=== PATIENT | female | born 1960 | race African-American/Black ===

== ENCOUNTER 2024-07-15 15:22 | Outpatient (CLI) | payer MEDICARE, MEDICAID, SELFPAY ==
--- NOTE | ~2024-07-15 | XR_ITS ---
[id number] Ordering provider: Karen Arana, WATER TREATMENT OPERATOR-C History: . CERVICAL RADICULOPATHY . Comparison: None. FINDINGS: VERTEBRAL BODIES: Normal height and alignment. No visible fracture or subluxation. The dens is intact . Lucency seen over the dens is most likely extending outside. If history of trauma is present CT is advised. DISK SPACES: Severe narrowing of the disc C4-C5 and C6-C7. Multilevel uncovertebral joint osteoarthri tic changes. PARASPINOUS SOFT TISSUES: No prevertebral soft tissue swelling. IMPRESSION: No acute osseous abnormality cervical spine. Multilevel degenerative disc disease. Reviewed, dictated and finalized at location A. WRITER
--- NOTE | ~2024-07-15 | XR_ITS ---
XR shoulder RT min 2V Ordering provider: Karen Arana, CHILD DEVELOPMENT SPECIALIST-C History: . SHOULDER PAIN . Comparison: None. FINDINGS: BONES: No acute fracture or dislocation. JOINT SPACES: The acromioclavicular joint shows mild osteoarthritic changes. The glenohumeral joint i s normal. SOFT TISSUES: Normal. Fibrotic changes of the lungs. IMPRESSION: No acute osseous abnormality right shoulder. Reviewed, dictated and finalized at location A. WARE DEVELOPER
== END 2024-07-15 15:23 | disposition home or self-care (01) ==
LOC: MICIMG 15:24
PROVIDERS: PCP Nurse Practitioner Family; Visit Provider Nurse Practitioner Family
DX: M25.511 Pain in right shoulder (principal); M50.30 Other cervical disc degeneration, unspecified cervical region
CPT/HCPCS: 72040; 73030